=== PATIENT | male | born 1965 | race Caucasian/White ===

== ENCOUNTER 2024-11-22 13:08 | Emergency (ER) | payer OTHER, SELFPAY ==
--- NOTE | ~2024-11-22 | XR_ITS ---
XR ankle RT min 3V Ordering provider: Jackson Hutchins MD History: . pain/swelling AFTER FALL . Comparison: None. FINDINGS: BONES: Fracture distal metaphysis of the right fibula. No displacement seen. No other fractures seen. Calcaneal spur is noted. JOINT SPACES: Normal. SOFT TISSUES: Soft tissue swelling over the lateral malleolus is seen. IMPRESSION: Fracture of the lateral malleolus with no significant displacement. Reviewed, dictated and finalized at location A. [employer]
[2024-11-22 14:13] VITALS: BP 138/90; PULSE 104; RESP 18; TEMP 36.7; O2SAT 98
[2024-11-22 15:45] VITALS: PULSE 102; RESP 16; TEMP 36.7; O2SAT 95
[2024-11-22] MEDS: HYDROcodone/acetaminophen (*CRX) 5-325 MG TABLET 1 TAB PO (16:39)
--- NOTE | 2024-11-22 17:41 | ED_ITS ---
HPI - Fall General Chief Complaint: Fall Stated Complaint: FELL ON ICE WHILE AT WORK ANKLE PAIN Time Seen by Provider: 11/22/24 16:07 History of Present Illness HPI Narrative: Patient is a 59-year-old male who presents ER with right ankle pain. Lateral malleolus. Slipped and fell on ice while working yesterday. Was initially able to bear weight without issue but within 20 minutes had significant swelling and cannot bear weight. No numbness or tingling. Symptoms continue to worsen. Better with rest. Patient did not strike his head or lose consciousness. Related Data Allergies Allergy/AdvReac Type Severity Reaction Status Date / Time Penicillins Allergy Severe Stopped Verified 12/05/18 08:24 Breathing diphenhydramine AdvReac Mild numbness Verified 12/05/18 08:24 prednisone AdvReac Mild numbness Verified 12/05/18 08:24 Review of Systems Constitutional: Constitutional: Reports no additional constitutional complaints Musculoskeletal: Musculoskeletal: Reports arthralgias, Reports joint swelling and Denies muscle cramps Integumentary/Breasts: Skin/Breast: Reports system reviewed and no additional complaints, except as docu Neurologic: Reports system reviewed and no additional complaints, except as documented PMFSH Past Medical History Medical History (Updated 11/22/24 @ 19:23 by Jackson Hutchins MD) Hypertension Exam Narrative: GENERAL: Well-appearing, well-nourished, and in no acute distress. HEAD: Normocephalic, atraumatic. ENT: Mucous membranes moist. HEART: Regular rate and rhythm. Normal peripheral pulses. EXTREMITIES: Normal range of motion. Tender palpation over the lateral malleolus of the right ankle. Mild foot edema. SKIN: Warm, dry, no rash. NEURO: Alert and oriented x3. PSYCH: Normal mood and affect. Course Course Emergency Course: Splint by technical writer and editor. Crutch training provided. [place] for home. Ortho referral. Vital Signs Vital signs: Vital Signs Temperature 98.0 F 11/22/24 14:13 Pulse Rate 104 H 11/22/24 14:13 Respiratory Rate 18 11/22/24 14:13 Blood Pressure 138/90 11/22/24 14:13 Pulse Oximetry 98 11/22/24 14:13 Oxygen Delivery Room Air 11/22/24 14:13 Temperature 98.0 F 11/22/24 15:45 Pulse Rate 102 H 11/22/24 15:45 Respiratory Rate 16 11/22/24 15:45 Blood Pressure 138/90 11/22/24 14:13 Pulse Oximetry 95 11/22/24 15:45 Oxygen Delivery Room Air 11/22/24 15:45 MDM - Fall Imaging Data Radiologist's impression: ITS Impressions Ankle X-Ray 11/22/24 16:49 IMPRESSION: Fracture of the lateral malleolus with no significant displacement. Discharge Plan Discharge Clinical Impression: Ankle fracture Patient Disposition: Home, Self-Care Condition: Stable Instructions: Ankle Fracture (ED), Crutch Instructions (ED) Patient Language: Azerbaijani Prescriptions: New hydrocodone-acetaminophen 5-325 mg tablet 1 tablet PO Q6H PRN (Reason: pain) Qty: 20 0RF Follow-up/Referrals: Espinoza,Osmel Tripathi APRN [Primary Care Provider] - Babatunde Astudillo MD [Physician] - 1 Week Stand Alone Forms: Work/School Release IP
--- NOTE | 2024-11-22 17:41 | PC.NURSE ---
Stirrup splint placed by ИРИНА Corey and PCT Neno. PMS intact before and after splint. Crutch education given and verbalized understanding and demonstrated proper use prior to discharge.
== END 2024-11-22 18:02 | disposition home or self-care (01) ==
PROVIDERS: Emergency Provider Emergency Medicine; PCP Nurse Practitioner Family
DX: S82.61XA Displaced fracture of lateral malleolus of right fibula, initial encounter for closed fracture (principal); W00.0XXA Fall on same level due to ice and snow, initial encounter; I10 Essential (primary) hypertension
CPT/HCPCS: 29515; 73610; 99284; A9270